=== PATIENT | male | born 1930 | race Caucasian/White ===

== ENCOUNTER 2019-03-11 14:01 | Observation (INO) | payer MEDICARE, OTHER ==
[~2019-03-11] VITALS: Ht 167.6 cm; Wt 68.7 kg
[~2019-03-11 14:01] MED LIST: ASPI325T PO; CELE1CAP4 PO; GLUCOSAMINE PO; MULTCAP PO; OMEP20CA3 PO; OXYC1TAB23 OR; SIMV10TA2 PO; VERA120T2 PO; VITACAP31 PO; VITACAP33 PO; traMADol 50 MG TAB PO PRN
[2019-03-11] MEDS ORDERED: CELE1CAP9 PO (15:39)
[2019-03-11] MEDS ORDERED: SYNT50TA PO (15:39)
--- NOTE | 2019-03-11 18:07 | REP ---
Clinical: Trauma. Fall. Technique: Internal rotation, external rotation, and Y view of the left shoulder. Findings: Age-related osteopenia and degenerative changes are appreciated including decrease subacromial space. No periarticular calcifications or loose bodies. No acute fracture or dislocation. Impression: Age-related osteopenia and degenerative changes. No acute fracture or dislocation. Electronically Signed by Dominic Griggs MD 03/11/2019 05:58 P
--- NOTE | 2019-03-11 18:55 | REP ---
Clinical: Trauma. Fall. Technique: AP, lateral, bilateral oblique views of the left elbow. Findings: Age-related osteopenia and mild degenerative changes are appreciated. No obvious, definite acute fracture or dislocation is appreciated. No significant swelling or hemarthrosis noted. Impression: No definite acute fracture or dislocation. If the patient remains symptomatic consider reevaluation in 3-5 days. Electronically Signed by Dominic Griggs MD 03/11/2019 06:46 P
--- NOTE | 2019-03-11 18:56 | REP ---
Clinical: Trauma. Fall. Technique: Frontal view of the chest with for a oblique views of the left hemithorax. Findings: Subtle nondisplaced anterolateral left seventh through ninth rib fractures are identified. No consolidation/contusion, effusion, or pneumothorax. Mediastinum and cardiac silhouette are normal. Impression: Subtle nondisplaced anterolateral left 7-9th rib fractures. Electronically Signed by Dominic Griggs MD 03/11/2019 06:48 P
[2019-03-11] MEDS ORDERED: CHOL100029 PO (18:58)
[2019-03-11] MEDS ORDERED: SIMV10TA21 PO (18:58)
[2019-03-11] MEDS ORDERED: OMEP1CAP73 PO (18:58)
[2019-03-11] MEDS ORDERED: LEVO50TA45 PO (18:58)
[2019-03-11] MEDS ORDERED: VERA120T4 PO (18:58)
[2019-03-11] MEDS ORDERED: C 50TAB PO (18:58)
[2019-03-11] MEDS ORDERED: CELE1CAP4 PO (18:58)
[2019-03-11] MEDS ORDERED: BAYE325T13 PO (18:58)
--- NOTE | 2019-03-11 19:43 | ECGEPIP ---
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
--- NOTE | 2019-03-11 19:47 | HPEPDOC ---
[facility] Medical History & Physical Date of Admission Mar 11, 2019 Date of Service: Mar 11, 2019 Attending Physician: CORTNEY VAUGHN MD History and Physical TIME OF SERVICE: 910 PM CHIEF COMPLAINT: Chest pain HISTORY OF PRESENT ILLNESS: A few days ago while walking, Mr. Bowers an 88-year-old male, tripped over an uneven sidewalk, and fell down onto his left side . As a result of the fall he developed left sharp, 8 out of 10 in severity chest and back pain. He came to the hospital today because he was concerned that his "ribs might poke his lungs" and that he should be examined. He attributes the fall to not watching where he was going. He did notice that the sidewalk was uneven but looked up to see the crosswalk prior to crossing the street and ended up tripping. REVIEW OF SYSTEMS: 12 point review of systems negative except as listed in HPI PAST MEDICAL/ SURGICAL HISTORY: Migraine GERD Sciatica Hypothyroidism Diverticulitis Status post appendectomy. 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 He denies a history of diabetes, CVA, or CAD SOCIAL HISTORY: Quit smoking in his 40s. Was in the [employer]. His first . He is currently remarried. Independent with all ADLs and IADLs FAMILY HISTORY: CAD ALLERGIES: Please see below. HOME MEDICATIONS: Please see below. PHYSICAL EXAMINATION: VITAL SIGNS: Please see below. GENERAL APPEARANCE: Well-nourished, well-developed, not in apparent distress HEENT: Normocephalic, atraumatic, mucous members moist and pink CARDIOVASCULAR: Regular rate and rhythm. No murmurs, rubs or gallops. Radial pulses are intact. No lower extremity edema. The left lateral chest wall is tender on palpation LUNGS: Clear to auscultation bilaterally on room air MUSCULOSKELETAL: Range of motion intact in all 4 extremities NEUROLOGICAL: Cranial nerves II-12 are grossly intact. Speech is not dysarthric PSYCHIATRIC: Alert and oriented to person, place and time, able to understand and follow commands LABORATORY DATA: See below. IMAGING: Left shoulder x-ray " Age-related osteopenia and degenerative changes. No acute fracture or dislocation." X-ray of the ribs " Subtle nondisplaced anterolateral left 7-9th rib fractures." Left elbow x-ray "No definite acute fracture or dislocation." CT of the head " No acute abnormality." MICROBIOLOGY: Please see below. ASSESSMENT: Mr. Bowers is an 88-year-old male with a past medical history of GERD, migraines, and sciatica will be admitted for management of chest pain secondary to rib fractures. PLAN: 1.Mechanical Fall resulting in non-displaced left 7th to 9th rib fractures At his baseline the patient walks on his own and is independent with his ADLs and IADLs The troponin, UA and CT of the head are unremarkable Plan: Admit to [facility]/ fall precautions/ pain control w Tylenol scheduled with Tramadol PRN at night /incentive spirometer. 2. Uncontrolled hypertension. Plan: c/w home meds 3. Osteopenia/osteoporosis. X-ray showed osteopenia, since he now has fractures he has osteoporosis by definition Plan: Can follow-up with his PCP for osteoporosis workup which includes DEXA (if T score less than -3 will need to take Forteo), BMP to calculate CrCl BMP to calculate CrCl prior to selecting bisphosphinate or Denosumab, TSH, Calcium, 25- OH Vitamin D, Urine calcium 4. GERD. Plan: Continue home meds 5. Migraines. Plan: Continue home meds 5. Hypothyroidism Plan: Continue home meds DVT px w SCDs Disposition possibly home tomorrow if pain is well-controlled with current regimen Vital Signs Vital Signs Date Time Temp Pulse Resp B/P (MAP) Pulse Ox O2 Delivery O2 Flow Rate FiO2 03/11/19 15:48 67 18 168/82 (110) 99 Room Air 03/11/19 14:03 98.0 Laboratory Data Labs 24H Laboratory Tests 2 03/11/19 19:27: CBC/BMP Home Medications Scheduled Acetaminophen (Acetaminophen) 500 Mg Tablet, 500 MG PO Q6H for pain Ascorbic Acid (Vitamin C) 500 Mg Tablet, 500 MG PO DAILY Levothyroxine Sodium (Levoxyl) 50 Mcg Tablet, 50 MCG PO DAILY Omeprazole (Omeprazole) 20 Mg Capsule.dr, 20 MG PO DAILY Simvastatin (Simvastatin) 10 Mg Tablet, 10 MG PO DAILY Verapamil HCl (Verapamil ER) 120 Mg Tablet.er, 120 MG PO DAILY Vitamin D (Vitamin D3) 1,000 Unit Tablet, 1,000 UNITS PO DAILY Allergies Coded Allergies: Penicillins (Verified Allergy, Intermediate, RASH, 03/11/19) A-FIB/CHADSVASC A-FIB History Current/History of A-Fib/PAF?: No Current PO Anticoag Therapy: No CORTNEY VAUGHN MD Mar 11, 2019 19:47
[2019-03-11 20:04] LABS: BASO # 0.1 10^3/uL (0.0-0.2); BASO % 0.7 % (0.0-1.0); EOS # 0.2 10^3/uL (0.0-0.5); EOS % 2.5 % (0.0-3.0); HEMATOCRIT 43.1 % (42.0-52.0); HEMOGLOBIN 14.8 g/dl (13.5-17.5); LYMPH # 1.7 10^3/uL (1.5-5.0); LYMPH % 23.3 % (24.0-44.0); MEAN CORPUSCULAR HEMOGLOBIN 32.6 pg (27.0-33.0); MEAN CORPUSCULAR HGB CONC 34.3 g/dl (32.0-36.5); MEAN CORPUSCULAR VOLUME 94.9 fl (80.0-96.0); MONO # 0.6 10^3/uL (0.0-0.8); MONO % 8.7 % (0.0-5.0); NEUTROPHILS # 4.6 10^3/uL (1.5-8.5); NEUTROPHILS % 64.7 % (36.0-66.0); PLATELET COUNT, AUTOMATED 256 10^3/uL (150-450); RED BLOOD COUNT 4.54 10^6/uL (4.30-6.10); WHITE BLOOD COUNT 7.1 10^3/uL (4.0-10.0)
[2019-03-11 20:07] LABS: APPEARANCE, URINE CLEAR (CLEAR); BACTERIA, URINE AUTO NEGATIVE (NEGATIVE); BILIRUBIN, URINE AUTO NEGATIVE (NEGATIVE); BLOOD, URINE BLOOD NEGATIVE (NEGATIVE); COLOR, URINE STRAW (YELLOW); GLUCOSE, URINE (UA) AUTO NEGATIVE (NEGATIVE); KETONE, URINE AUTO NEGATIVE (NEGATIVE); LEUKOCYTE ESTERASE, URINE AUTO NEGATIVE (NEGATIVE); NITRITE, URINE AUTO NEGATIVE (NEGATIVE); PROTEIN, URINE AUTO NEGATIVE (NEGATIVE); RBC, URINE AUTO 2 /HPF (0-3); SPECIFIC GRAVITY URINE AUTO 1.008 (1.002-1.035); SQUAMOUS EPITHELIAL CELL UR AU 0 /HPF (0-6); UROBILINOGEN, URINE AUTO 0.2 mg/dL (0.0-2.0); WBC, URINE AUTO 0 /HPF (0-3)
--- NOTE | 2019-03-11 20:22 | REPVR ---
EXAM: CT Head Without Contrast EXAM DATE/TIME: 03/11/2019 7:52 PM CLINICAL HISTORY: 88 years old, male; Injury or trauma; Fall; Initial encounter; Blunt trauma (contusions or hematomas); Consciousness not specified TECHNIQUE: Imaging protocol: Computed tomography of the head without contrast. Radiation optimization: All CT scans at this facility use at least one of these dose optimization techniques: automated exposure control; mA and/or kV adjustment per patient size (includes targeted exams where dose is matched to clinical indication); or iterative reconstruction. COMPARISON: No relevant prior studies available. FINDINGS: Brain: Global cerebral atrophy is consistent with patient's age. Decreased attenuation within the white matter tracts of both cerebral hemispheres is nonspecific but typically seen with small vessel disease/chronic white matter ischemic changes of aging. No intracranial hemorrhage or mass effect. Ventricles: Mild ventriculomegaly is consistent with global atrophy. No hydrocephalus. Bones/joints: Unremarkable. No acute fracture. Sinuses: Visualized sinuses are unremarkable. No fluid levels. Mastoid air cells: Visualized mastoid air cells are well aerated. Soft tissues: Unremarkable. IMPRESSION: No acute abnormality. Electronically signed by: Lavell Corona On 03/11/2019 20:22:14 PM
[2019-03-11 20:37] LABS: ALBUMIN 3.9 GM/DL (3.2-5.2); ALT/SGPT 19 U/L (12-78); BILIRUBIN,DIRECT 0.1 MG/DL (0.0-0.2); BILIRUBIN,TOTAL 0.4 MG/DL (0.2-1.0); BLOOD UREA NITROGEN 16 MG/DL (7-18); CALCIUM LEVEL 9.2 MG/DL (8.8-10.2); CARBON DIOXIDE LEVEL 29 MEQ/L (21-32); CHLORIDE LEVEL 104 MEQ/L (98-107); CK-MB VALUE MASS 1.6 NG/ML (<3.6); CPK CREATINE PHOSPHOKINASE 73 U/L (39-308); CREATININE FOR GFR 1.31 MG/DL (0.70-1.30); GLOMERULAR FILTRATION RATE 55.2 (>35); GLUCOSE, FASTING 89 MG/DL (70-100); MB/CK RELATIVE INDEX 2.19 (< OR =4); POTASSIUM SERUM 4.1 MEQ/L (3.5-5.1); SODIUM LEVEL 138 MEQ/L (136-145); TOTAL PROTEIN 7.7 GM/DL (6.4-8.2); TROPONIN I < 0.02 NG/ML (< 0.10)
[2019-03-11 22:05] VITALS: BP 158/70
[2019-03-11] MEDS: ACETAMINOPHEN 650MG ER TAB (TYLENOL ARTHRITIS) PO SCH (22:38)
[2019-03-12 06:00] VITALS: BP 144/72
[2019-03-12] MEDS ORDERED: LEVOTHYROXINE 50MCG TABLET (0.05MG) PO SCH (06:00)
[2019-03-12 06:53] LABS: HEMATOCRIT 37.3 % (42.0-52.0); HEMOGLOBIN 13.2 g/dl (13.5-17.5); MEAN CORPUSCULAR HEMOGLOBIN 33.6 pg (27.0-33.0); MEAN CORPUSCULAR HGB CONC 35.4 g/dl (32.0-36.5); MEAN CORPUSCULAR VOLUME 94.9 fl (80.0-96.0); PLATELET COUNT, AUTOMATED 211 10^3/uL (150-450); RED BLOOD COUNT 3.93 10^6/uL (4.30-6.10); WHITE BLOOD COUNT 4.8 10^3/uL (4.0-10.0)
[2019-03-12 07:12] LABS: CALCIUM LEVEL 8.8 MG/DL (8.8-10.2); CREATININE FOR GFR 1.27 MG/DL (0.70-1.30); GLOMERULAR FILTRATION RATE 57.2 (>35)
--- NOTE | 2019-03-12 08:51 | ECGEPIP ---
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
[2019-03-12] MEDS ORDERED: VITAMIN D 1,000 INTERNATIONAL UNITS TABLET PO SCH (09:00)
[2019-03-12] MEDS ORDERED: CelecoXIB (CeleBREX) 100 MG CAP PO SCH (09:00)
[2019-03-12] MEDS ORDERED: SIMVASTATIN 10 MG TAB PO SCH (09:00)
[2019-03-12] MEDS ORDERED: OMEPRAZOLE 20 MG CAP PO SCH (09:00)
[2019-03-12] MEDS ORDERED: VERAPAMIL 120 MG SR TAB PO SCH (09:00)
[2019-03-12] MEDS: ACETAMINOPHEN 650MG ER TAB (TYLENOL ARTHRITIS) PO SCH (09:03)
[2019-03-12 09:18] VITALS: BP 128/63
[2019-03-12 09:20] VITALS: BP 128/63
[2019-03-12] MEDS ORDERED: ACET-861 PO (09:51)
--- NOTE | 2019-03-12 10:21 | REP ---
Clinical: Left rib fractures. Evaluate for effusion. Technique: PA and lateral. Comparison: 03/11/2019. Findings: Mediastinum and cardiac silhouette are within normal limits and stable. Lung meraz demonstrate chronic interstitial changes. No consolidation/contusion, effusion, or pneumothorax identified. The skeletal structures demonstrate osteopenia and degenerative changes and the nondisplaced left rib fractures are again noted. Impression: No consolidation/contusion, effusion or pneumothorax. Electronically Signed by Dominic Griggs MD 03/12/2019 10:13 A
--- NOTE | 2019-03-12 14:08 | DS.PDOC ---
Discharge Summary General Date of Admission Mar 11, 2019 at 14:02 Date of Discharge 03/12/19 Discharge Summary PROCEDURES PERFORMED DURING STAY: [None]. DISCHARGE DIAGNOSES: 1. mechanical fall - rib fractures 2. Migraines 3. Gerd 4. Sciatica 5. Hypothyroidism 6. Diverticulitis COMPLICATIONS/CHIEF COMPLAINT: Multiple Rib Fractures. HISTORY OF PRESENT ILLNESS: 88 yo male presents for left lower anterolateral chest pain after mechanical fall tripping on sidewalk. Denied any loss of consciousness. Found to have multiple minimally displaced rib fractures. Pain was well controlled with Tylenol. CXR showed no pleural effusion. Saturated well on room air. Bedside instruction on proper IS use. Discharged home with outpatient follow up. DISCHARGE MEDICATIONS: Please see below. ALLERGIES: Please see below. PHYSICAL EXAMINATION ON DISCHARGE: VITAL SIGNS: Please see below. General: NAD, lying comfortably in bed, in good spirits HEENT: NC/AT, EOMI Lungs: CTA B/L, good air movement Heart: +S1S2, RRR Abd: soft, NT, +BS Ext: no edema LABORATORY DATA: Please see below. ACTIVITY: [As tolerated]. DISPOSITION: 01 Home, Self-Care. DISCHARGE INSTRUCTIONS: 1. Follow up PCP in 3-5 days DISCHARGE CONDITION: [Stable]. TIME SPENT ON DISCHARGE: 35 minutes. Vital Signs/I&Os Vital Signs Date Time Temp Pulse Resp B/P (MAP) Pulse Ox O2 Delivery O2 Flow Rate FiO2 03/12/19 09:20 63 128/63 03/12/19 06:00 97.1 18 97 03/11/19 21:53 Room Air I&O- Last 24 Hours up to 6 AM 03/12/19 06:00 Intake Total 200 ml Output Total 0 ml Balance 200 ml Laboratory Data Labs 24H Laboratory Tests 2 03/11/19 19:27: Immature Granulocyte % (Auto) 0.1, White Blood Count 7.1, Red Blood Count 4.54, Hemoglobin 14.8, Hematocrit 43.1, Mean Corpuscular Volume 94.9, Mean Corpuscular Hemoglobin 32.6, Mean Corpuscular Hemoglobin Concent 34.3, Red Cell Distribution Width 12.2, Platelet Count 256, Neutrophils (%) (Auto) 64.7, Lymphocytes (%) (Auto) 23.3L, Monocytes (%) (Auto) 8.7H, Eosinophils (%) (Auto) 2.5, Basophils (%) (Auto) 0.7, Neutrophils # (Auto) 4.6, Lymphocytes # (Auto) 1.7, Monocytes # (Auto) 0.6, Eosinophils # (Auto) 0.2, Basophils # (Auto) 0.1, Nucleated Red Blood Cells % (auto) 0.0, Anion Gap 5L, Glomerular Filtration Rate 55.2, Calcium Level 9.2, Aspartate Amino Transf (AST/SGOT) 17, Alanine Aminotransferase (ALT/SGPT) 19, Alkaline Phosphatase 89, Total Bilirubin 0.4, Direct Bilirubin 0.1, Total Creatine Kinase 73, Creatine Kinase MB 1.6, Creatine Kinase MB Relative Index 2.19, Troponin I < 0.02, Total Protein 7.7, Albumin 3.9, Albumin/Globulin Ratio 1.03 03/11/19 19:28: Urine Appearance CLEAR, Urine Color STRAW, Urine pH 5.0, Urine Specific [place] 1.008, Urine Protein NEGATIVE, Urine Glucose (UA) NEGATIVE, Urine Ketones NEGATIVE, Urine Urobilinogen 0.2, Urine Bilirubin NEGATIVE, Urine Leukocyte Esterase NEGATIVE, Urine Blood NEGATIVE, Urine Nitrite NEGATIVE, Urine WBC (Auto) 0, Urine RBC (Auto) 2, Urine Hyaline Casts (Auto) 0, Urine Bacteria (Auto) NEGATIVE, Urine Squamous Epithelial Cells 0, Urine Sperm (Auto) 03/12/19 06:33: Nucleated Red Blood Cells % (auto) 0.0, Anion Gap 6L, Glomerular Filtration Rate 57.2, Calcium Level 8.8, Blood Urea Nitrogen 16, Creatinine 1.27, Sodium Level 139, Potassium Level 4.0, Chloride Level 107, Carbon Dioxide Level 26, Magnesium Level 2.0 CBC/BMP Laboratory Tests 03/11/19 19:27 Red Blood Count 4.54, Mean Corpuscular Volume 94.9, Mean Corpuscular Hemoglobin 32.6, Mean Corpuscular Hemoglobin Concent 34.3, Red Cell Distribution Width 12.2, Neutrophils (%) (Auto) 64.7, Lymphocytes (%) (Auto) 23.3 L, Monocytes (%) (Auto) 8.7 H, Eosinophils (%) (Auto) 2.5, Basophils (%) (Auto) 0.7, Neutrophils # (Auto) 4.6, Lymphocytes # (Auto) 1.7, Monocytes # (Auto) 0.6, Eosinophils # (Auto) 0.2, Basophils # (Auto) 0.1 03/12/19 06:33 Red Blood Count 3.93 L, Mean Corpuscular Volume 94.9, Mean Corpuscular Hemoglobin 33.6 H, Mean Corpuscular Hemoglobin Concent 35.4, Red Cell Distribution Width 12.2, Calcium Level 8.8 Discharge Medications Scheduled Acetaminophen (Acetaminophen) 500 Mg Tablet, 500 MG PO Q6H for pain Ascorbic Acid (Vitamin C) 500 Mg Tablet, 500 MG PO DAILY, (Reported) Levothyroxine Sodium (Levoxyl) 50 Mcg Tablet, 50 MCG PO DAILY, (Reported) Omeprazole (Omeprazole) 20 Mg Capsule.dr, 20 MG PO DAILY, (Reported) Simvastatin (Simvastatin) 10 Mg Tablet, 10 MG PO DAILY, (Reported) Verapamil HCl (Verapamil ER) 120 Mg Tablet.er, 120 MG PO DAILY, (Reported) Vitamin D (Vitamin D3) 1,000 Unit Tablet, 1,000 UNITS PO DAILY, (Reported) Allergies Coded Allergies: Penicillins (Verified Allergy, Intermediate, RASH, 03/11/19) MARLEEN LÓPEZ MD Mar 12, 2019 14:08
== END 2019-03-12 13:26 | disposition home or self-care (01) ==
LOC: M ED 14:01 → M ED INP 14:02 → M MSPAV 21:59
PROVIDERS: ADMIT Internal Medicine; ATTEND Internal Medicine
DX: S22.42XA Multiple fractures of ribs, left side, initial encounter for closed fracture (principal); M25.522 Pain in left elbow; W01.0XXA Fall on same level from slipping, tripping and stumbling without subsequent striking against object, initial encounter; Y92.480 Sidewalk as the place of occurrence of the external cause; Y93.01 Activity, walking, marching and hiking; G43.909 Migraine, unspecified, not intractable, without status migrainosus; K21.9 Gastro-esophageal reflux disease without esophagitis; M54.30 Sciatica, unspecified side; E03.9 Hypothyroidism, unspecified; K57.92 Diverticulitis of intestine, part unspecified, without perforation or abscess without bleeding; I10 Essential (primary) hypertension; M85.80 Other specified disorders of bone density and structure, unspecified site; M81.0 Age-related osteoporosis without current pathological fracture; Z79.899 Other long term (current) drug therapy; Z79.82 Long term (current) use of aspirin; Z88.0 Allergy status to penicillin; Z87.891 Personal history of nicotine dependence
CPT/HCPCS: 36415; 70450; 71046; 71101; 73030; 73080; 80048; 80076; 81001; 82550; 82553; 83735; 84484; 85025; 85027; 93005; 97161; 99284; G0378